=== PATIENT | male | born 1995 | race Caucasian/White ===

== ENCOUNTER 2019-11-19 15:30 | Emergency (ER) | payer BC, MEDICAID ==
[2019-11-19] MEDS ORDERED: Lidocaine 1% 20 ML MDV INJECT ONE (16:02)
[2019-11-19] MEDS ORDERED: Bacitracin Oint 1 GM U/D Packet TOP ONE (16:03)
--- NOTE | 2019-11-19 16:05 | EDM.PDOC ---
ED HPI GENERAL MEDICAL PROBLEM - General Chief Complaint: Laceration Stated Complaint: LEFT FOOT INJURY Time Seen by Provider: 11/19/19 16:04 Source of Information: Reports: Patient History Limitations: Reports: No Limitations - History of Present Illness INITIAL COMMENTS - FREE TEXT/NARRATIVE: pt has a 1 inch cut between the rt small toe and the next. . this was deep to the subq. . Onset: Today, Sudden Duration: Hour(s): Location: Reports: Lower Extremity, Left Associated Symptoms: Reports: No Other Symptoms - Related Data Allergies Allergy/AdvReac Type Severity Reaction Status Date / Time No Known Allergies Allergy Verified 11/19/19 15:56 Home Meds: Home Meds NK [No Known Home Meds] 11/19/19 [History] Social & Family History - Tobacco Use Smoking Status *Q: Current Every Day Smoker Years of Tobacco use: 7 Packs/Tins Daily: 1 - Recreational Drug Use Recreational Drug Use: No ED ROS GENERAL - Review of Systems Review Of Systems: See Below Constitutional: Reports: No Symptoms HEENT: Reports: No Symptoms Respiratory: Reports: No Symptoms Cardiovascular: Reports: No Symptoms Endocrine: Reports: No Symptoms GI/Abdominal: Reports: No Symptoms : Reports: No Symptoms Musculoskeletal: Reports: Other (laceration between the small toe and the next. 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 Exam Limited By: No Limitations General Appearance: Alert, Anxious Extremities: Other (pt has a 1.25 laceration deep to the sub q between the small toe and the next. ) Neurological: Alert, Oriented, Normal Cognition Course - Vital Signs Last Recorded V/S: Last Vital Signs Temp 36.4 C 11/19/19 15:56 Pulse 81 11/19/19 15:56 Resp 16 11/19/19 15:56 BP 112/67 11/19/19 15:56 Pulse Ox 100 11/19/19 15:56 - Orders/Labs/Meds Orders: Active Orders 24 hr Category Date Time Status Vaccines to be Administered [RC] PER UNIT ROUTINE Care 11/19/19 16:03 Active Meds: Medications Discontinued Medications Generic Name Dose Route Start Last Admin Trade Name Freq PRN Reason Stop Dose Admin Bacitracin 1 dose 11/19/19 16:03 11/19/19 16:47 Bacitracin Oint 1 Gm TOP 11/19/19 16:04 1 dose ONETIME ONE Administration Diphtheria/Tetanus/Acell Pertussis 0.5 ml 11/19/19 16:30 11/19/19 16:46 Adacel IM 11/19/19 16:31 0.5 ml .ONCE ONE Administration Lidocaine HCl 0 ml 11/19/19 16:02 11/19/19 16:46 Xylocaine 1% INJECT 11/19/19 16:03 20 ml ONETIME ONE Administration - Re-Assessments/Exams Free Text/Narrative Re-Assessment/Exam: 11/19/19 17:18 foot was soaked and the laceration was injected with lidocaine. The wound was irrigated. The wound was closed with 5-0 chromic and 5-0 prolene. the wound was dressed with bacatracin and guaze. He was given tdap. Departure - Departure Time of Disposition: 17:08 Disposition: Home, Self-Care 01 Condition: Fair Clinical Impression: Laceration - Discharge Information Referrals: PCP,None [Primary Care Provider] - Forms: ED Department Discharge Care Plan Goals: keep dry, no further ointments, keep guaze between his toes, keep covered, suture removal in 8 days. keflex 500mg tid for 5 days. Sepsis Event Note (ED) - Evaluation Sepsis Screening Result: No Definite Risk - Focused Exam Vital Signs: Vital Signs Temp Pulse Resp BP Pulse Ox 11/19/19 15:56 36.4 C 81 16 112/67 100 11/19/19 15:44 36.4 C 81 16 112/67 100 - My Orders Last 24 Hours: My Active Orders 11/19/19 16:03 Vaccines to be Administered [RC] PER UNIT ROUTINE - Assessment/Plan Last 24 Hours: My Active Orders 11/19/19 16:03 Vaccines to be Administered [RC] PER UNIT ROUTINE
[2019-11-19] MEDS ORDERED: Diphtheria,Pertussis(Acell),Tetanus Vaccine 0.5 ML SDV IM ONE (16:30)
== END 2019-11-19 17:21 | disposition home or self-care (01) ==
LOC: EDBD 15:30 → JP.ED 15:30
DX: S91.312A Laceration without foreign body, left foot, initial encounter (principal); F17.210 Nicotine dependence, cigarettes, uncomplicated; Z23 Encounter for immunization; W26.8XXA Contact with other sharp object(s), not elsewhere classified, initial encounter
CPT/HCPCS: 12001; 90471; 90715; 99282; J2001; 12002